=== PATIENT | female | born 1965 | race Two or more races ===

== ENCOUNTER 2025-03-04 19:13 | Emergency (ER) | payer OTHER, MEDICAID ==
[~2025-03-04] VITALS: Ht 162.6 cm; Wt 119.8 kg
[2025-03-04] MEDS ORDERED: PRED20TA2 PO (20:10)
[2025-03-04] MEDS ORDERED: LORA10CA PO (20:10)
--- NOTE | 2025-03-04 20:10 | ED.PDOC ---
History of Present Illness(SKN HPI Comments 60-year-old female presents to ER with complaints of rash x2 days. Patient reports that she has been experiencing a red 6/10 burning rash to face x2 days. Notes that she has also felt like she has been running a fever x1 day, denying checking her temperature at home. Denies use of medications for current symptoms presents to ER afebrile, ambulatory on arrival, with steady gait, in no distress. Denies use of new soaps/detergents, known allergies, body aches, chills or any further symptoms/complaints Chief Complaint: Rash Time Seen by MD: 19:18 Primary Care Provider: UNKNOWN History of Present Illness: Nurses Notes, Medications, Allergies Home Meds Active Scripts Prednisone (Prednisone) 20 Mg Tab, 20 MG PO BID for 5 Days, #10 TAB 0 Refills Prov:EMIGDIO JONES 03/04/25 Loratadine (Claritin) 10 Mg Cap, 10 MG PO DAILY PRN, #30 CAP 0 Refills Prov:EMIGDIO JONES 03/04/25 Information Source: Patient Mode of Arrival: Ambulatory Past Medical History PAST MEDICAL HISTORY: Arthritis (RA), COPD Past Medical History (Other): Fibromyalgia Surgical History: Tubal Ligation Surgical History (Other): Cervical spine surgery Bilateral knee replacement Bilateral shoulder surgery Family History Family History: Unknown Social History Smoker: Non-Smoker Alcohol: Denies ETOH Use Drugs: Denies Drug Use Lives In: Home Constitutional: denies: chills, diaphoresis, fatigue, fever, malaise, sweats, weakness, others EENTM: reports: others (As stated in HPI) Respiratory: denies: cough, hemoptysis, orthopnea, SOB at rest, shortness of breath, SOB with excertion, stridor, wheezing, others Cardiovascular: denies: chest pain, dizzy spells, diaphoresis, Dyspnea on exertion, edema, irregular heart beat, left arm pain, lightheadedness, palpitations, PND, syncope, others Gastrointestinal: denies: abdomen distended, abdominal pain, blood streaked bowels, constipated, diarrhea, dysphagia, difficulty swallowing, hematemesis, melena, nausea, poor appetite, poor fluid intake, rectal bleeding, rectal pain, vomiting, others Genitourinary: denies: abnormal vagina bleeding, burning, dyspareunia, dysuria, flank pain, frequency, hematuria, incontinence, pain, , vagina d ischarge, urgency, others Neurological: denies: dizziness, fainting, headache, left sided numbness, left sided weakness, numbness, paresthesia, pre-existing deficit, right sided numbness, right sided weakness, seizure, speech problems, tingling, tremors, weakness, others Musculoskeletal: denies: back pain, gout, joint pain, joint swelling, muscle pain, muscle stiffness, neck pain, others Integumetry: reports: others (As stated in HPI) Allergic/Immunocompromised: reports: others (As stated in HPI) Hematologic/Lymphatic: denies: anemia, blood clots, easy bleeding, easy bruising, swollen glands, others Endocrine: denies: excessive hunger, excessive sweating, excessive thirst, excessive urination, flushing, intolerance to cold, intolerance to heat, unexplained weight gain, unexplained weight loss, others Psychiatric: denies: anxiety, bipolar disorder, depression, hopeless, panic disorder, schizophrenia, sleepless, suicidal, others Physical Exam General Appearance: No Apparent Distress HEENT: Normal ENT Inspection, PERRL/EOMI, Pharynx Normal, TMs Normal, Other (Minimal urticaria noted to face. No angioedema/further skin changes noted) Neck: Full Range of Motion, Non-Tender, Normal Respiratory: Chest Non-Tender, Lungs Clear, No Accessory Muscle Use, No Respiratory Distress, Normal Breath Sounds Cardiovascular: No Murmur, No Gallop, Regular Rate/Rhythm Breast Exam: Deferred Gastrointestinal: NOT DONE Genitalia: Deferred Pelvic: Deferred Rectal: Deferred Extremities: Normal capillary refill, Normal range of motion Neurologic: Alert, No Motor Deficits, Normal Affect, Normal Mood, No Sensory Deficits Cerebellar Function: Normal Reflexes: Normal Skin: Dry, Warm Lymphatic: No Adenopathy Was a procedure done? Was a procedure done?: No Sedation Sedation?: No Differential Diagnosis (INTG) Differential Diagnosis: Cellulitis, Other (angioedema, respiratory distress) X-Ray, Labs, Meds, VS Vital Signs Date Time Temp Pulse Resp B/P (MAP) Pulse Ox O2 Delivery O2 Flow Rate FiO2 03/04/25 19:15 98.3 112 20 117/71 97 98.3 Patient in no distress during ER visit/prior to discharge Advised to follow up with PCP in 1-2 days Patient verbalized understanding and agreeable with current plan of care Advised to return to ER immediately if symptoms worsen Time of 1ST Reevaluation: 19:40 Reevaluation 1ST: N/A Patient Education/Counseling: Diagnosis, Treatment, Prognosis, Need For Follow Up Family Education/Counseling: No Family Present SEPSIS Sepsis Screen Date sepsis recognized/suspect: Mar 04, 2025 Time Sepsis recognized/suspect: 1919 Recent Procedure: No On Antibiotic Therapy: No Respiratory Rate >20: No Heart Rate >90: Yes Temp<36 C (96.8 F) or >38.3 C: No SBP <90 or MAP <65 mmHG: No New Acute Mental Status Change: No Is the patient on CPAP, BIPAP,: No Vital Signs Date Time Temp Pulse Resp B/P (MAP) Pulse Ox O2 Delivery O2 Flow Rate FiO2 03/04/25 19:15 98.3 112 20 117/71 97 98.3 Departure 1 Departure Time of Disposition: 20:02 Impression: Primary Impression: Contact dermatitis Qualified Codes: L25.9 - Unspecified contact dermatitis, unspecified cause Disposition: HOME / SELF CARE / HOMELESS Condition: Stable e-Prescriptions Prednisone (Prednisone) 20 Mg Tab 20 MG PO BID for 5 Days, #10 TAB 0 Refills Prov: EMIGDIO JONES 03/04/25 Loratadine (Claritin) 10 Mg Cap 10 MG PO DAILY PRN, #30 CAP 0 Refills Prov: EMIGDIO JONES 03/04/25 Discharged With: Self Critical Care Note Critical Care Time?: No Stability Stability form required: No Heart Score Heart Score: Heart Score Response (Comments) Value History N/A 0 EKG N/A 0 Age N/A 0 Risk Factors N/A 0 Troponin N/A 0 Total 0 EMIGDIO JONES Mar 04, 2025 20:10
[2025-03-04 20:19] VITALS: BP 115/74; PULSE 94; RESP 17; TEMP 98.3; O2SAT 92
== END 2025-03-04 20:19 | disposition home or self-care (01) ==
LOC: ER 19:13
DX: L25.9 Unspecified contact dermatitis, unspecified cause (principal); M06.9 Rheumatoid arthritis, unspecified; J44.9 Chronic obstructive pulmonary disease, unspecified; M79.7 Fibromyalgia; Z79.52 Long term (current) use of systemic steroids; Z96.653 Presence of artificial knee joint, bilateral; Z98.51 Tubal ligation status; Z79.899 Other long term (current) drug therapy